=== PATIENT | male | born 1970 | race Hispanic/Latino ===

== ENCOUNTER 2023-02-12 19:15 | Inpatient (IN) | payer BC, MEDICARE, OTHER, SELFPAY ==
[~2023-02-12] VITALS: Ht 175.3 cm; Wt 70.0 kg
[2023-02-12] MEDS ORDERED: MIDAZOLAM INJ 2MG/2ML VIAL IV STA ×2 (19:25→19:43)
[2023-02-12] MEDS ORDERED: MIDAZOLAM INJ 2MG/2ML VIAL As Ordered ONE (19:26)
[2023-02-12] MEDS ORDERED: NS 1,000 ML IV ONE (19:40)
[2023-02-12] MEDS ORDERED: SODIUM CHLORIDE 0.9% INJ 10 ML SYR IV PRN (20:00)
[2023-02-12 20:01] LABS: HEMATOCRIT 40.5 % (42.0-52.0); MEAN CORPUSCULAR HEMOGLOBIN 35.8 pg (27.0-33.0); MEAN CORPUSCULAR HGB CONC 32.1 g/dl (32.0-36.5); MEAN CORPUSCULAR VOLUME 111.6 fl (80.0-96.0); RED BLOOD COUNT 3.63 10^6/uL (4.30-6.10); WHITE BLOOD COUNT 10.8 10^3/uL (4.0-10.0)
[2023-02-12 20:21] LABS: CK-MB VALUE MASS 1.5 NG/ML (<3.6); ETHYL ALCOHOL (ETHANOL) 0.004 % (0.000-0.010)
[2023-02-12 20:22] LABS: CPK CREATINE PHOSPHOKINASE 993 U/L (46-171); MB/CK RELATIVE INDEX 0.15 (< OR =4)
[2023-02-12] MEDS ORDERED: LORazepam 2 MG/ML 1ML VIAL IV STA (20:22)
[2023-02-12 20:23] LABS: ALBUMIN 2.7 G/DL (3.2-5.2); ALKALINE PHOSPHATASE 68 U/L (46-116); ALT/SGPT 21 U/L (7.0-40); AST/SGOT 49 U/L (<34); BILIRUBIN,DIRECT 0.2 MG/DL (<0.4); BILIRUBIN,TOTAL 0.5 MG/DL (0.3-1.2); BLOOD UREA NITROGEN 28 MG/DL (9-23); CALCIUM LEVEL 8.2 MG/DL (8.5-10.1); CARBON DIOXIDE LEVEL 16 MMOL/L (20-31); CHLORIDE LEVEL 101 MMOL/L (98-107); GLOMERULAR FILTRATION RATE 56.4 (>56); GLUCOSE, FASTING 103 MG/DL (60-100); PLATELET COUNT, AUTOMATED 74 10^3/uL (150-450); POTASSIUM SERUM 4.3 MMOL/L (3.5-5.1); SODIUM LEVEL 140 MMOL/L (136-145); TOTAL PROTEIN 6.2 G/DL (5.7-8.2)
[2023-02-12 20:25] LABS: THYROID STIMULATING HORMONE 1.277 uIU/ML (0.55-4.78)
[2023-02-12] MEDS ORDERED: NS 1,100 ML in IV 1 EA IV ONE (20:25)
[2023-02-12 20:31] LABS: LYMPHOCYTES 3 % (16-44); MONOCYTES 2 % (0-5); NEUTROPHILS 90 % (28-66); PLATELET ESTIMATE DECREASED (NORMAL); TOXIC VACUOLATION 2+
[2023-02-12 20:44] LABS: AMPHETAMINES LEVEL URINE NEGATIVE (NEGATIVE); BARBITURATES URINE NEGATIVE (NEGATIVE); BENZODIAZEPINES URINE NEGATIVE (NEGATIVE); COCAINE METABOLITE URINE NEGATIVE (NEGATIVE)
[2023-02-12 20:45] LABS: METHADONE URINE NEGATIVE (NEGATIVE); OPIATES URINE NEGATIVE (NEGATIVE)
[2023-02-12] MEDS ORDERED: ISOVUE-370 76% 100ML VIAL As Ordered ONE (20:50)
[2023-02-12 20:52] LABS: SALICYLATE LEVEL < 3.0 MG/DL (<30)
[2023-02-12] MEDS ORDERED: PIPERACILLIN/TAZOBACTAM SOD 4.5 GM in D5W MINI-BAG PLUS 50 ML IV ONE (20:55)
[2023-02-12 21:12] LABS: ABG BASE EXCESS -13.1 (-2.0-2.0); ABG HCO3 11.3 MMOL/L (22.0-26.0); ABG O2 SATURATION 89.3 % (95.0-99.0); ABG PARTIAL PRESSURE O2 64.1 mmHg (75.0-100.0); ABG STANDARD HCO3 14.2 MMOL/L. (22.0-26.0); ABG pH (ARTERIAL) 7.308 UNITS (7.350-7.450)
[2023-02-12] MEDS ORDERED: ETOMIDATE INJ 20MG/10ML VIAL IV STA (21:32)
[2023-02-12] MEDS ORDERED: SUCCINYLCHOLINE INJ 200MG/10ML VIAL IV ONE (21:35)
[2023-02-12] MEDS ORDERED: propofoL 1,000 MG in IV 1 EA IV SCH (21:35)
[2023-02-12 21:36] LABS: PHENCYCLIDINE URINE NEGATIVE (NEGATIVE)
[2023-02-12 21:44] LABS: CANNABINOIDS URINE POSITIVE (NEGATIVE)
[2023-02-12 22:02] LABS: CK-MB VALUE MASS 2.5 NG/ML (<3.6)
[2023-02-12 22:07] LABS: MB/CK RELATIVE INDEX 0.22 (< OR =4)
[2023-02-12] MEDS ORDERED: ACETAMINOPHEN *IV* 1,000 MG in IV 1 EA IV ONE (22:25)
[2023-02-12] MEDS ORDERED: dexAMETHasone 20MG/5ML VIAL IV ONE (22:55)
[2023-02-12] MEDS ORDERED: VANCOMYCIN HCL 1,000 MG, VIAL MATE ADAPTER 1 EACH in D5W 250 ML IV ONE (23:20)
[2023-02-12] MEDS ORDERED: MED REC CURRENTLY UNOBTAINABLE XX SCH (23:25)
[2023-02-12 23:30] LABS: ABG BASE EXCESS -12.3 (-2.0-2.0); ABG HCO3 15.9 MMOL/L (22.0-26.0); ABG O2 SATURATION 98.5 % (95.0-99.0); ABG PARTIAL PRESSURE O2 156.4 mmHg (75.0-100.0); ABG STANDARD HCO3 14.9 MMOL/L. (22.0-26.0); ABG TOTAL CO2 17.2 MMOL/L (22.0-29.0)
[2023-02-12 23:35] LABS: ABG pH (ARTERIAL) 7.165 UNITS (7.350-7.450)
[2023-02-13] VITALS (94 sets, daily range): BP systolic 73–116; BP diastolic 39–79; TEMP 98.4–102.2; O2SAT 90–100
[2023-02-13] MEDS ORDERED: NS 1,000 ML IV ONE ×2 (00:10→00:50)
[2023-02-13] MEDS ORDERED: LORazepam 2 MG/ML 1ML VIAL IV PRN (00:15)
[2023-02-13] MEDS ORDERED: SODIUM BICARBONATE 8.4% INJ 50ML SYRINGE IV STA ×3 (00:29→08:25)
[2023-02-13] MEDS: dexmedeTOMidine 200 MCG in IV 1 EA IV SCH ×4 (00:32→10:39)
[2023-02-13] MEDS ORDERED: CEFEPIME HCL 2 GM in D5W MINI-BAG PLUS 50 ML IV SCH (01:00)
[2023-02-13] MEDS ORDERED: D5W IV SCH (02:00)
[2023-02-13] MEDS ORDERED: ACYCLOVIR IV SCH (02:00)
[2023-02-13 02:38] LABS: ABG BASE EXCESS -10.3 (-2.0-2.0); ABG HCO3 12.8 MMOL/L (22.0-26.0); ABG O2 SATURATION 96.8 % (95.0-99.0); ABG PARTIAL PRESSURE CO2 22.2 mmHg (35.0-45.0); ABG PARTIAL PRESSURE O2 92.3 mmHg (75.0-100.0); ABG STANDARD HCO3 16.3 MMOL/L. (22.0-26.0); ABG TOTAL CO2 13.5 MMOL/L (22.0-29.0)
[2023-02-13] MEDS ORDERED: FENTANYL DRIP LOCK BOX KEY 1 EACH XX PRN (02:40)
[2023-02-13] MEDS ORDERED: MIDAZOLAM INJ 2MG/2ML VIAL IV STA (02:46)
[2023-02-13] MEDS: NOREPINEPHRINE 4MG IN D5 250ML 4 MG in IV 1 EA IV SCH ×8 (02:54→17:59)
[2023-02-13] MEDS: ACYCLOVIR 700 MG in D5W 100 ML IV SCH ×3 (02:54→18:21)
[2023-02-13] MEDS: fentaNYL CITRATE/NaCl 1,000 MCG in IV 1 EA IV SCH ×2 (03:00→15:01)
[2023-02-13] MEDS ORDERED: LORazepam 2 MG/ML 1ML VIAL IV STA (03:14)
[2023-02-13] MEDS ORDERED: MIDAZOLAM INJ 2MG/2ML VIAL IV PRN (03:25)
[2023-02-13] MEDS: VASOPRESSIN INJ 20 UNITS in NS 499 ML IV SCH ×3 (03:34→18:21)
[2023-02-13] MEDS: AMPICILLIN SOD 1 GM in D5W MINI-BAG PLUS 100 ML IV SCH ×2 (04:04→08:20)
[2023-02-13] MEDS: TRIMETHOPRIM IV SCH ×2 (04:48→09:17)
[2023-02-13] MEDS: D5W IV SCH ×2 (04:48→09:17)
[2023-02-13] MEDS: SULFAMETHOXAZOLE IV SCH ×2 (04:48→09:17)
[2023-02-13] MEDS ORDERED: VANCOMYCIN HCL 1,000 MG, VIAL MATE ADAPTER 1 EACH in D5W 250 ML IV SCH (05:00)
[2023-02-13] MEDS ORDERED: ACETAMINOPHEN *IV* 1,000 MG in IV 1 EA IV ONE (05:05)
[2023-02-13 05:36] LABS: ABG BASE EXCESS -10.8 (-2.0-2.0); ABG HCO3 13.5 MMOL/L (22.0-26.0); ABG O2 SATURATION 95.2 % (95.0-99.0); ABG PARTIAL PRESSURE CO2 26.1 mmHg (35.0-45.0); ABG PARTIAL PRESSURE O2 82.6 mmHg (75.0-100.0); ABG STANDARD HCO3 15.9 MMOL/L. (22.0-26.0); ABG TOTAL CO2 14.3 MMOL/L (22.0-29.0)
[2023-02-13] MEDS ORDERED: MIDAZOLAM 100MG/100ML-0.9%NACL 100 MG in IV 1 EA IV SCH (06:00)
[2023-02-13 06:54] LABS: CENTRAL VEN BASE EXCESS -12.2
[2023-02-13 07:00] LABS: HEMATOCRIT 34.8 % (42.0-52.0); HEMOGLOBIN 11.3 g/dl (13.5-17.5); MEAN CORPUSCULAR HEMOGLOBIN 36.3 pg (27.0-33.0); MEAN CORPUSCULAR HGB CONC 32.5 g/dl (32.0-36.5); MEAN CORPUSCULAR VOLUME 111.9 fl (80.0-96.0); RED BLOOD COUNT 3.11 10^6/uL (4.30-6.10); WHITE BLOOD COUNT 13.6 10^3/uL (4.0-10.0)
[2023-02-13 07:01] LABS: PLATELET COUNT, AUTOMATED 21 10^3/uL (150-450)
[2023-02-13 07:10] LABS: INR 1.88; PROTHROMBIN TIME 20.9 SECONDS (12.5-14.5)
[2023-02-13 07:12] LABS: ANISOCYTOSIS 1+; LYMPHOCYTES 5 % (16-44); MONOCYTES 9 % (0-5); NEUTROPHILS 81 % (28-66); PLATELET ESTIMATE MARKED DECREASE (NORMAL); POIKILOCYTOSIS 1+; POLYCHROMASIA 1+
[2023-02-13 07:36] LABS: CPK CREATINE PHOSPHOKINASE 1242 U/L (46-171)
[2023-02-13 07:45] LABS: ALKALINE PHOSPHATASE 33 U/L (46-116); ALT/SGPT 392 U/L (7.0-40); AST/SGOT 561 U/L (<34); BILIRUBIN,TOTAL 0.7 MG/DL (0.3-1.2); BLOOD UREA NITROGEN 30 MG/DL (9-23); CALCIUM LEVEL 6.3 MG/DL (8.5-10.1); CARBON DIOXIDE LEVEL 15 MMOL/L (20-31); CHLORIDE LEVEL 106 MMOL/L (98-107); CK-MB VALUE MASS 8.5 NG/ML (<3.6); CREATININE FOR GFR 1.16 MG/DL (0.70-1.30); GLOMERULAR FILTRATION RATE > 60.0 (>56); GLUCOSE, FASTING 210 MG/DL (60-100); MAGNESIUM LEVEL 1.9 MG/DL (1.8-2.4); MB/CK RELATIVE INDEX 0.68 (< OR =4); PHOSPHORUS LEVEL 5.4 MG/DL (2.5-4.9); POTASSIUM SERUM 4.8 MMOL/L (3.5-5.1); SODIUM LEVEL 136 MMOL/L (136-145); TOTAL PROTEIN 4.6 G/DL (5.7-8.2)
[2023-02-13 08:01] LABS: LDH LACTATE DEHYDROGENASE 1200 U/L (120-246)
[2023-02-13] MEDS: PANTOPRAZOLE 40MG VIAL IV SCH ×2 (08:20→21:06)
[2023-02-13] MEDS ORDERED: dexAMETHasone 20MG/5ML VIAL IV SCH (09:00)
[2023-02-13] MEDS ORDERED: PANTOPRAZOLE 40MG VIAL IV SCH (09:00)
[2023-02-13] MEDS ORDERED: PHENYLEPHRINE HCL INJ 50 MG in D5W 495 ML IV SCH (09:00)
[2023-02-13 11:34] LABS: VANCOMYCIN RANDOM 45.9 UG/ML
[2023-02-13] MEDS: CEFEPIME HCL 2 GM in D5W MINI-BAG PLUS 50 ML IV SCH ×2 (11:43→19:30)
[2023-02-13] MEDS ORDERED: GLUCAGON INJ 1MG VIAL SC PRN (12:05)
[2023-02-13] MEDS ORDERED: GLUCOSE 4GM CHEW TABLET PO PRN (12:05)
[2023-02-13] MEDS ORDERED: DEXTROSE 50% 50ML SYRINGE IV PRN (12:05)
[2023-02-13] MEDS: AMPICILLIN SOD 2 GM in D5W MINI-BAG PLUS 100 ML IV SCH ×3 (12:16→20:01)
[2023-02-13] MEDS: INSULIN LISPRO (NovoLOG) PER UNIT SC SCH ×2 (12:31→18:00)
[2023-02-13 13:54] LABS: ABG BASE EXCESS -12.1 (-2.0-2.0); ABG HCO3 13.8 MMOL/L (22.0-26.0); ABG O2 SATURATION 98.5 % (95.0-99.0); ABG PARTIAL PRESSURE CO2 31.6 mmHg (35.0-45.0); ABG PARTIAL PRESSURE O2 135.8 mmHg (75.0-100.0); ABG STANDARD HCO3 15.1 MMOL/L. (22.0-26.0); ABG TOTAL CO2 14.8 MMOL/L (22.0-29.0); ABG pH (ARTERIAL) 7.258 UNITS (7.350-7.450)
[2023-02-13] MEDS: TRIMETHOPRIM/SULFAMETHOXAZOLE 250 MG in D5W 500 ML IV SCH ×2 (15:16→21:06)
[2023-02-13] MEDS ORDERED: LR 1,000 ML IV ONE (15:25)
[2023-02-13] MEDS ORDERED: dexmedeTOMidine 200 MCG in IV 1 EA IV SCH (17:08)
[2023-02-13 17:29] LABS: HEMATOCRIT 32.6 % (42.0-52.0); HEMOGLOBIN 10.6 g/dl (13.5-17.5); MEAN CORPUSCULAR HEMOGLOBIN 36.2 pg (27.0-33.0); MEAN CORPUSCULAR HGB CONC 32.5 g/dl (32.0-36.5); MEAN CORPUSCULAR VOLUME 111.3 fl (80.0-96.0); RED BLOOD COUNT 2.93 10^6/uL (4.30-6.10); WHITE BLOOD COUNT 13.3 10^3/uL (4.0-10.0)
[2023-02-13 17:59] LABS: PLATELET COUNT, AUTOMATED 10 10^3/uL (150-450)
[2023-02-13 18:01] LABS: LYMPHOCYTES 4 % (16-44); METAMYELOCYTES 1 % (0-0); MONOCYTES 7 % (0-5); NEUTROPHILS 67 % (28-66); PLATELET ESTIMATE MARKED DECREASE (NORMAL)
[2023-02-13 18:02] LABS: DOHLE BODIES 1+
[2023-02-13 18:19] LABS: ALBUMIN 1.7 G/DL (3.2-5.2); ALKALINE PHOSPHATASE 26 U/L (46-116); ALT/SGPT 1000.00001 U/L (7.0-40); AST/SGOT 1000.00001 U/L (<34); BILIRUBIN,TOTAL 0.5 MG/DL (0.3-1.2); BLOOD UREA NITROGEN 29 MG/DL (9-23); CALCIUM LEVEL 6.1 MG/DL (8.5-10.1); CARBON DIOXIDE LEVEL 19 MMOL/L (20-31); CHLORIDE LEVEL 106 MMOL/L (98-107); CPK CREATINE PHOSPHOKINASE 1970 U/L (46-171); CREATININE FOR GFR 1.12 MG/DL (0.70-1.30); GLOMERULAR FILTRATION RATE > 60.0 (>56); GLUCOSE, FASTING 160 MG/DL (60-100); MAGNESIUM LEVEL 1.8 MG/DL (1.8-2.4); SODIUM LEVEL 135 MMOL/L (136-145); TOTAL PROTEIN 4.2 G/DL (5.7-8.2)
[2023-02-13] MEDS ORDERED: CALCIUM CHLORIDE 10% 1 GM/10 ML SYR IV STA (18:36)
[2023-02-13] MEDS: MIDAZOLAM 100MG/100ML-0.9%NACL 100 MG in IV 1 EA IV SCH (19:00)
[2023-02-13] MEDS ORDERED: INSULIN LISPRO (NovoLOG) PER UNIT SC SCH (21:00)
[2023-02-14] VITALS (63 sets, daily range): BP systolic 95–119; BP diastolic 60–79; TEMP 97.8–101.9; O2SAT 92–98
[2023-02-14] MEDS: AMPICILLIN SOD 2 GM in D5W MINI-BAG PLUS 100 ML IV SCH ×3 (00:17→07:22)
[2023-02-14] MEDS: INSULIN LISPRO (NovoLOG) PER UNIT SC SCH ×4 (00:17→18:00)
[2023-02-14] MEDS: ACYCLOVIR 700 MG in D5W 100 ML IV SCH (01:16)
[2023-02-14] MEDS: CEFEPIME HCL 2 GM in D5W MINI-BAG PLUS 50 ML IV SCH (02:29)
[2023-02-14] MEDS: VASOPRESSIN INJ 20 UNITS in NS 499 ML IV SCH ×3 (02:46→19:20)
[2023-02-14] MEDS: NOREPINEPHRINE 4MG IN D5 250ML 4 MG in IV 1 EA IV SCH ×6 (04:23→18:21)
[2023-02-14 04:39] LABS: HEMATOCRIT 31.8 % (42.0-52.0); HEMOGLOBIN 10.6 g/dl (13.5-17.5); MEAN CORPUSCULAR HEMOGLOBIN 35.9 pg (27.0-33.0); MEAN CORPUSCULAR HGB CONC 33.3 g/dl (32.0-36.5); MEAN CORPUSCULAR VOLUME 107.8 fl (80.0-96.0); RED BLOOD COUNT 2.95 10^6/uL (4.30-6.10); WHITE BLOOD COUNT 16.2 10^3/uL (4.0-10.0)
[2023-02-14 04:43] LABS: PLATELET COUNT, AUTOMATED 15 10^3/uL (150-450)
[2023-02-14 05:06] LABS: CK-MB VALUE MASS 10.5 NG/ML (<3.6)
[2023-02-14 05:10] LABS: LYMPHOCYTES 6 % (16-44); MONOCYTES 17 % (0-5); NEUTROPHILS 65 % (28-66); NUCLEATED RED BLOOD CELL 2 % (0-0); PLATELET ESTIMATE MARKED DECREASE (NORMAL)
[2023-02-14 05:11] LABS: POLYCHROMASIA 1+
[2023-02-14 05:24] LABS: MB/CK RELATIVE INDEX 0.82 (< OR =4)
[2023-02-14 05:40] LABS: ALBUMIN 1.8 G/DL (3.2-5.2); ALKALINE PHOSPHATASE 41 U/L (46-116); ALT/SGPT 942 U/L (7.0-40); AST/SGOT 1141 U/L (<34); BILIRUBIN,TOTAL 0.7 MG/DL (0.3-1.2); BLOOD UREA NITROGEN 28 MG/DL (9-23); CALCIUM LEVEL 6.8 MG/DL (8.5-10.1); CARBON DIOXIDE LEVEL 20 MMOL/L (20-31); CHLORIDE LEVEL 106 MMOL/L (98-107); CREATININE FOR GFR 0.99 MG/DL (0.70-1.30); GLOMERULAR FILTRATION RATE > 60.0 (>56); GLUCOSE, FASTING 132 MG/DL (60-100); MAGNESIUM LEVEL 1.8 MG/DL (1.8-2.4); PHOSPHORUS LEVEL 2.1 MG/DL (2.5-4.9); POTASSIUM SERUM 4.3 MMOL/L (3.5-5.1); SODIUM LEVEL 135 MMOL/L (136-145); TOTAL PROTEIN 4.5 G/DL (5.7-8.2)
[2023-02-14 05:46] LABS: ABG BASE EXCESS -5.1 (-2.0-2.0); ABG HCO3 17.9 MMOL/L (22.0-26.0); ABG O2 SATURATION 94.3 % (95.0-99.0); ABG PARTIAL PRESSURE CO2 27.4 mmHg (35.0-45.0); ABG PARTIAL PRESSURE O2 72.4 mmHg (75.0-100.0); ABG STANDARD HCO3 20.2 MMOL/L. (22.0-26.0); ABG TOTAL CO2 18.7 MMOL/L (22.0-29.0); ABG pH (ARTERIAL) 7.432 UNITS (7.350-7.450)
[2023-02-14] MEDS: MIDAZOLAM 100MG/100ML-0.9%NACL 100 MG in IV 1 EA IV SCH (06:57)
[2023-02-14] MEDS: PANTOPRAZOLE 40MG VIAL IV SCH ×2 (08:13→20:07)
[2023-02-14] MEDS ORDERED: PIPERACILLIN/TAZOBACTAM SOD 4.5 GM in D5W MINI-BAG PLUS 50 ML IV SCH (09:00)
[2023-02-14] MEDS ORDERED: SODIUM CHLORIDE 0.9% INJ 10 ML SYR IV PRN (11:35)
[2023-02-14] MEDS: KETOROLAC 30 MG/ML 1ML VIAL IV PRN (11:39)
[2023-02-14] MEDS: PIPERACILLIN/TAZOBACTAM SOD 4.5 GM in D5W MINI-BAG PLUS 50 ML IV SCH ×2 (14:58→19:52)
[2023-02-14] MEDS: fentaNYL CITRATE/NaCl 1,000 MCG in IV 1 EA IV SCH (16:28)
[2023-02-14] MEDS ORDERED: SENN1TAB41 PO (17:46)
[2023-02-14] MEDS ORDERED: SILV50CR TOP (17:46)
[2023-02-14] MEDS ORDERED: GENV1TAB PO (17:46)
[2023-02-14] MEDS ORDERED: LIDO30CR18 TOP (17:46)
[2023-02-14] MEDS ORDERED: FLOM0.4C39 PO (17:46)
[2023-02-14] MEDS ORDERED: ONDA-83 PO (17:46)
[2023-02-14] MEDS ORDERED: TRAM100T36 PO (17:46)
[2023-02-14] MEDS ORDERED: BACT400T PO (17:46)
[2023-02-14] MEDS ORDERED: HOME MED LIST COMPLETE! XX SCH (17:50)
[2023-02-15] VITALS (30 sets, daily range): BP systolic 93–135; BP diastolic 60–84; TEMP 98.1–101.1; O2SAT 91–97
[2023-02-15] MEDS: NOREPINEPHRINE 4MG IN D5 250ML 4 MG in IV 1 EA IV SCH ×2 (00:44)
[2023-02-15] MEDS: PIPERACILLIN/TAZOBACTAM SOD 4.5 GM in D5W MINI-BAG PLUS 50 ML IV SCH ×4 (01:51→22:40)
[2023-02-15 04:35] LABS: HEMATOCRIT 30.7 % (42.0-52.0); HEMOGLOBIN 10.6 g/dl (13.5-17.5); MEAN CORPUSCULAR HEMOGLOBIN 35.9 pg (27.0-33.0); MEAN CORPUSCULAR HGB CONC 34.5 g/dl (32.0-36.5); MEAN CORPUSCULAR VOLUME 104.1 fl (80.0-96.0); RED BLOOD COUNT 2.95 10^6/uL (4.30-6.10); WHITE BLOOD COUNT 22.8 10^3/uL (4.0-10.0)
[2023-02-15 04:46] LABS: PLATELET COUNT, AUTOMATED 16 10^3/uL (150-450)
[2023-02-15 05:09] LABS: CK-MB VALUE MASS 39.2 NG/ML (<3.6)
[2023-02-15 05:12] LABS: ALBUMIN 1.6 G/DL (3.2-5.2); ALKALINE PHOSPHATASE 70 U/L (46-116); ALT/SGPT 848 U/L (7.0-40); AST/SGOT 562 U/L (<34); BLOOD UREA NITROGEN 34 MG/DL (9-23); CALCIUM LEVEL 7.1 MG/DL (8.5-10.1); CARBON DIOXIDE LEVEL 22 MMOL/L (20-31); CHLORIDE LEVEL 109 MMOL/L (98-107); GLOMERULAR FILTRATION RATE > 60.0 (>56); GLUCOSE, FASTING 115 MG/DL (60-100); MAGNESIUM LEVEL 2.2 MG/DL (1.8-2.4); PHOSPHORUS LEVEL 1.9 MG/DL (2.5-4.9); POTASSIUM SERUM 3.8 MMOL/L (3.5-5.1); SODIUM LEVEL 141 MMOL/L (136-145); TOTAL PROTEIN 4.7 G/DL (5.7-8.2)
[2023-02-15 05:25] LABS: CPK CREATINE PHOSPHOKINASE 4068 U/L (46-171); MB/CK RELATIVE INDEX 0.96 (< OR =4)
[2023-02-15] MEDS: INSULIN LISPRO (NovoLOG) PER UNIT SC SCH ×4 (05:33→18:00)
[2023-02-15 05:38] LABS: LYMPHOCYTES 2 % (16-44); MONOCYTES 13 % (0-5); NEUTROPHILS 76 % (28-66); NUCLEATED RED BLOOD CELL 1 % (0-0)
[2023-02-15 05:39] LABS: ANISOCYTOSIS 1+; PLATELET ESTIMATE MARKED DECREASE (NORMAL)
[2023-02-15 05:46] LABS: ABG BASE EXCESS 0.2 (-2.0-2.0); ABG HCO3 23.3 MMOL/L (22.0-26.0); ABG O2 SATURATION 95.8 % (95.0-99.0); ABG PARTIAL PRESSURE CO2 32.6 mmHg (35.0-45.0); ABG PARTIAL PRESSURE O2 80.2 mmHg (75.0-100.0); ABG STANDARD HCO3 24.6 MMOL/L. (22.0-26.0); ABG TOTAL CO2 24.3 MMOL/L (22.0-29.0); ABG pH (ARTERIAL) 7.472 UNITS (7.350-7.450)
[2023-02-15] MEDS: PANTOPRAZOLE 40MG VIAL IV SCH ×2 (08:31→22:40)
[2023-02-15] MEDS: SODIUM CHLORIDE 0.9% INJ 10 ML SYR IV SCH (08:32)
[2023-02-15] MEDS: NS 1,000 ML IV SCH (12:15)
[2023-02-15] MEDS: MIDAZOLAM 100MG/100ML-0.9%NACL 100 MG in IV 1 EA IV SCH (17:08)
[2023-02-15] MEDS: dexmedeTOMidine 200 MCG in IV 1 EA IV SCH ×2 (19:24→22:12)
[2023-02-15] MEDS: KETOROLAC 30 MG/ML 1ML VIAL IV PRN (23:22)
[2023-02-16] VITALS (32 sets, daily range): BP systolic 107–134; BP diastolic 63–83; TEMP 97.6–101; O2SAT 86–99
[2023-02-16] MEDS: PIPERACILLIN/TAZOBACTAM SOD 4.5 GM in D5W MINI-BAG PLUS 50 ML IV SCH ×2 (01:40→08:39)
[2023-02-16] MEDS: fentaNYL CITRATE/NaCl 1,000 MCG in IV 1 EA IV SCH ×2 (02:40→12:46)
[2023-02-16] MEDS: NS 1,000 ML IV SCH (02:42)
[2023-02-16] MEDS: dexmedeTOMidine 200 MCG in IV 1 EA IV SCH ×3 (03:02→21:57)
[2023-02-16 04:24] LABS: HEMATOCRIT 31.2 % (42.0-52.0); HEMOGLOBIN 10.8 g/dl (13.5-17.5); MEAN CORPUSCULAR HEMOGLOBIN 36.4 pg (27.0-33.0); MEAN CORPUSCULAR HGB CONC 34.6 g/dl (32.0-36.5); MEAN CORPUSCULAR VOLUME 105.1 fl (80.0-96.0); RED BLOOD COUNT 2.97 10^6/uL (4.30-6.10); WHITE BLOOD COUNT 22.3 10^3/uL (4.0-10.0)
[2023-02-16 04:35] LABS: PLATELET COUNT, AUTOMATED 19 10^3/uL (150-450)
[2023-02-16 04:59] LABS: ALBUMIN 1.5 G/DL (3.2-5.2); ALKALINE PHOSPHATASE 78 U/L (46-116); ALT/SGPT 757 U/L (7.0-40); AST/SGOT 416 U/L (<34); BILIRUBIN,TOTAL 1.2 MG/DL (0.3-1.2); BLOOD UREA NITROGEN 42 MG/DL (9-23); CALCIUM LEVEL 6.9 MG/DL (8.5-10.1); CARBON DIOXIDE LEVEL 24 MMOL/L (20-31); CHLORIDE LEVEL 112 MMOL/L (98-107); CREATININE FOR GFR 0.96 MG/DL (0.70-1.30); GLOMERULAR FILTRATION RATE > 60.0 (>56); GLUCOSE, FASTING 129 MG/DL (60-100); MAGNESIUM LEVEL 2.5 MG/DL (1.8-2.4); POTASSIUM SERUM 4.1 MMOL/L (3.5-5.1); SODIUM LEVEL 142 MMOL/L (136-145); TOTAL PROTEIN 4.7 G/DL (5.7-8.2)
[2023-02-16 05:12] LABS: LYMPHOCYTES 3 % (16-44); MONOCYTES 3 % (0-5); NEUTROPHILS 73 % (28-66)
[2023-02-16 05:13] LABS: PLATELET ESTIMATE MARKED DECREASE (NORMAL)
[2023-02-16] MEDS: INSULIN LISPRO (NovoLOG) PER UNIT SC SCH ×4 (06:00→18:00)
[2023-02-16 06:02] LABS: ABG BASE EXCESS -1.4 (-2.0-2.0); ABG HCO3 21.5 MMOL/L (22.0-26.0); ABG O2 SATURATION 94.7 % (95.0-99.0); ABG PARTIAL PRESSURE CO2 30.4 mmHg (35.0-45.0); ABG PARTIAL PRESSURE O2 73.9 mmHg (75.0-100.0); ABG STANDARD HCO3 23.3 MMOL/L. (22.0-26.0); ABG TOTAL CO2 22.4 MMOL/L (22.0-29.0); ABG pH (ARTERIAL) 7.467 UNITS (7.350-7.450)
[2023-02-16] MEDS: PANTOPRAZOLE 40MG VIAL IV SCH ×2 (08:40→20:00)
[2023-02-16] MEDS: SODIUM CHLORIDE 0.9% INJ 10 ML SYR IV SCH (09:00)
[2023-02-16 09:35] LABS: INR 1.26; PROTHROMBIN TIME 15.4 SECONDS (12.5-14.5)
[2023-02-16 09:36] LABS: PARTIAL THROMBOPLASTIN TIME 25.3 SECONDS (24.8-34.2)
[2023-02-16] MEDS ORDERED: LR 1,000 ML IV SCH (12:10)
[2023-02-16] MEDS ORDERED: LORazepam 2 MG/ML 1ML VIAL As Ordered ONE (12:18)
[2023-02-16] MEDS: fentaNYL 100 MCG/2 ML INJECTION IV PRN ×2 (12:22→21:00)
[2023-02-16] MEDS: MIDAZOLAM INJ 2MG/2ML VIAL IV PRN ×4 (12:23→23:40)
[2023-02-16] MEDS ORDERED: MIDAZOLAM INJ 2MG/2ML VIAL IV STA (12:31)
[2023-02-16] MEDS: cefTRIAXone SOD 2 GM in D5W MINI-BAG PLUS 50 ML IV SCH (14:02)
[2023-02-16] MEDS: KETOROLAC 30 MG/ML 1ML VIAL IV PRN (16:31)
[2023-02-16 19:10] LABS: % CD8 Pos Lymph 31.2 % (12.0-35.5); %CD4 Pos Lymphs 10.7 % (30.8-58.5); CD4/CD8 Ratio 0.34 (0.92-3.72); HIV-1 RNA PCR QUANT 2 LC550285 120 copies/mL (.); HIV-1 RNA PCR QUANT 3 LC550285 2.079 (.)
[2023-02-16 19:32] LABS: HEPATITIS B CORE ANTIBODY IGM NEGATIVE (NEGATIVE); HEPATITIS C VIRUS ABY INDEX 0.05 INDEX (<0.8)
[2023-02-16] MEDS ORDERED: PROHANCE 279.3MG/ML 15ML VIAL As Ordered ONE (20:25)
[2023-02-16] MEDS ORDERED: ATOVAQUONE SUSP 750MG/5ML 210 ML BTL PO SCH (21:00)
[2023-02-17] VITALS: BP 112/66; TEMP 98.5; O2SAT 97
[2023-02-17] MEDS: fentaNYL CITRATE/NaCl 1,000 MCG in IV 1 EA IV SCH (00:32)
[2023-02-17 01:00] VITALS: BP 109/65; O2SAT 97
[2023-02-17 01:18] VITALS: O2SAT 97
[2023-02-17 02:00] VITALS: BP 97/58; O2SAT 98
[2023-02-17] MEDS: cefTRIAXone SOD 2 GM in D5W MINI-BAG PLUS 50 ML IV SCH (02:17)
[2023-02-17] MEDS: MIDAZOLAM INJ 2MG/2ML VIAL IV PRN ×2 (02:22→02:49)
[2023-02-17] MEDS: INSULIN LISPRO (NovoLOG) PER UNIT SC SCH (02:23)
[2023-02-17 02:43] VITALS: BP 119/71; O2SAT 99
[2023-02-17 14:09] LABS: % CD8 Pos Lymph 30.3 % (12.0-35.5); %CD4 Pos Lymphs 20.4 % (30.8-58.5); ABS Basophils 0.1 x10E3/uL (0.0-0.2); ABS Lymphs 0.5 x10E3/uL (0.7-3.1); ABS Monocytes 0.7 x10E3/uL (0.1-0.9); ABS Neutophils 20.9 x10E3/uL (1.4-7.0); Abs CD4 Helper 102 /uL (359-1519); Abs CD8 Suppres 152 /uL (109-897); CD4/CD8 Ratio 0.67 (0.92-3.72); Eosinophils 0 % (Not Estab.); HCT 31.6 % (37.5-51.0); Imm ABS Grans 0.2 x10E3/uL (0.0-0.1); Immature Grans 1 % (Not Estab.); Lymphocytes 2 % (Not Estab.); MCH 35.3 pg (26.6-33.0); MCHC 34.8 g/dL (31.5-35.7); MCV 101 fL (79-97); Monocytes 3 % (Not Estab.); Neutrophils 94 % (Not Estab.); Platelets 24 x10E3/uL (150-450); RBC 3.12 x10E6/uL (4.14-5.80); RDW 12.1 % (11.6-15.4); WBC 22.4 x10E3/uL (3.4-10.8)
== END 2023-02-17 02:55 | disposition short-term general hospital (02) | DRG 974 ==
LOC: M ED 19:15 → EDBD 19:15 → M ED INP 02-13 00:50 → M ICU 02-13 01:33
PROVIDERS: ADMIT Internal Medicine Critical Care Medicine; ATTEND Internal Medicine
PROC: 5A1945Z Respiratory Ventilation, 24-96 Consecutive Hours (ICD-10-PCS; principal; 2023-02-13)
DX: A41.50 Gram-negative sepsis, unspecified (principal); B20 Human immunodeficiency virus [HIV] disease; J96.01 Acute respiratory failure with hypoxia; R65.21 Severe sepsis with septic shock; B59 Pneumocystosis; I21.A1 Myocardial infarction type 2; G06.2 Extradural and subdural abscess, unspecified; G04.90 Encephalitis and encephalomyelitis, unspecified; K72.01 Acute and subacute hepatic failure with coma; K92.2 Gastrointestinal hemorrhage, unspecified; C20 Malignant neoplasm of rectum; N17.9 Acute kidney failure, unspecified; E87.20 Acidosis, unspecified; M62.82 Rhabdomyolysis; I10 Essential (primary) hypertension; R74.01 Elevation of levels of liver transaminase levels; D69.6 Thrombocytopenia, unspecified; Z92.21 Personal history of antineoplastic chemotherapy; F17.210 Nicotine dependence, cigarettes, uncomplicated; Z92.3 Personal history of irradiation